=== PATIENT | male | born 1945 | race Caucasian/White ===

== ENCOUNTER 2020-03-08 19:20 | Outpatient (CLI) | payer MEDICARE, SELFPAY ==
--- NOTE | ~2020-03-08 | MR_ITS ---
EXAMINATION: MR lumbar spine wo [facility] EXAM DATE: 03/08/2020 19:56 INDICATION: Low back pain, right leg pain. TECHNIQUE: Multi-sequential, multiplanar MR images of the lumbar spine were obtained without contrast . Sagittal T1, T2, T2 fat saturation images. Axial T2 weighted images. Comparison is made to prior examination from 03/26/2018. FINDINGS: Scattered vertebral body hemangiomas. There is severe disc disease at L3-4 and L5-S1, moder ate to severe at L2-3 and L4-5. Moderate disc disease L1-2 and L2-3. Mild lumbar scoliosis. There is 4 mm retrolisthesis L4 on L5, 7 mm anterolisthesis L5 on S1 (with chronic bilateral L5 spondylolysis) . The conus medullaris terminates at the L1/2 level and has normal signal intensity and morphology. Mild to moderate diffuse loss of lumbar vertebral body heights from L2-L5. Paraspinal soft tissue is unremarkable. Level by level evaluation: T12-L1: There is a moderate diffuse disc bulge. Facet arthropathy: Moderate. Neural foraminal stenosis: Moderate to severe right, moderate left. Central canal stenosis: Mild to moderate. L1-L2: There is a moderate diffuse disc bulge. Facet arthropathy: Moderate. Neural foraminal stenosis: Moderate to severe left, mild right. Central canal stenosis: Mild to moderate. L2-L3: There is a moderate diffuse disc bulge. Facet arthropathy: Moderate to severe left, moderate right. Neural foraminal stenosis: Moderate to severe left, mild right. Central canal stenosis: Moderate. L3-L4: There is a large diffuse disc bulge. Facet arthropathy: Moderate. Neural foraminal stenosis: Moderate to severe right, moderate left. Central canal stenosis: Moderate to severe. L4-L5: There is a large diffuse disc bulge. Facet arthropathy: Severe right, moderate left. Neural foraminal stenosis: Severe right, moderate to severe left. Central canal stenosis: Moderate to severe. L5-S1: There is a large diffuse disc bulge. Facet arthropathy: Moderate. Neural foraminal stenosis: Moderate to severe bilateral. Central canal stenosis: Mild to moderate. Evidence of mild progression in spondylosis compared to prior study. IMPRESSION: Moderate to severe lumbar spondylosis, central canal most narrowed at L3-4. Chronic L5 sp ondylolysis. Reviewed, dictated and finalized at location A. IMPRESSION: Moderate to severe lumbar spondylosis, central canal most narrowed at L3-4. Chronic L5 spondylolysis.
== END 2020-03-08 19:21 | disposition home or self-care (01) ==
PROVIDERS: Visit Provider Nurse Practitioner Family
DX: M47.26 Other spondylosis with radiculopathy, lumbar region (principal)
CPT/HCPCS: 72148